=== PATIENT | female | born 1970 | race Caucasian/White ===

== ENCOUNTER 2021-03-02 14:17 | Emergency (ER) | payer BC, SELFPAY ==
--- NOTE | ~2021-03-02 | CT_ITS ---
EXAMINATION: CTA brain carotid DATE: 03/02/2021 20:14 INDICATION: Transient alteration of awareness TECHNIQUE: Computed tomographic angiography (CTA) of the head was performed with 100 mL Omnipaque-350 intravenous contrast. CTA of the neck was performed with intravenous contrast. The dose-length produ ct was 1020.60 mGy-cm. Maximum intensity projection and volume rendered 3D-reconstructions were creat ed by the technologist on a separate workstation. Automated exposure control and iterative reconstruc tion technique were employed. COMPARISON: None. FINDINGS: HEAD CTA: There is no intracranial hemorrhage, acute infarction, or abnormal mass lesion. The ventric les are normal. There is no abnormal mass effect or midline shift. The hammer-white matter differentiat ion is normal. The basal cisterns are patent. The orbits are normal. The paranasal sinuses, mastoids and calvarium are normal. There is no significant stenosis of the basilar artery or posterior cerebral arteries. There is no si gnificant stenosis of the intracranial internal carotid arteries or the anterior or middle cerebral a rteries. The anterior communicating artery and posterior communicating arteries are normal. There is no aneurysm. NECK CTA: The thyroid gland is unremarkable. The submandibular and parotid glands are symmetric. Ther e is no lymphadenopathy. There are no masses identified. The airway is unremarkable. There are no oss eous abnormalities. The superior mediastinum is unremarkable. There is 0% stenosis of the proximal right internal carotid artery relative to normal distal artery l umen diameter (NASCET criteria). There is 0% stenosis of the proximal left internal carotid artery re lative to normal distal artery lumen diameter. IMPRESSION: 1. No acute intracranial abnormality. Normal head CTA. 2. 0% stenosis of the proximal right internal carotid artery relative to normal distal artery lumen d iameter (NASCET criteria). 3. 0% stenosis of the proximal left internal carotid artery relative to normal distal artery lumen di ameter. Reviewed, dictated and finalized at location A. IMPRESSION: 1. No acute intracranial abnormality. Normal head CTA. 2. 0% stenosis of the proximal right internal carotid artery relative to normal distal artery lumen diameter (NASCET criteria). 3. 0% stenosis of the proximal left internal carotid artery relative to normal distal artery lumen diameter.
--- NOTE | ~2021-03-02 | CT_ITS ---
EXAMINATION: CT brain wo con INDICATION: Confusion, transient alteration of awareness COMPARISON: None TECHNIQUE: Standard unenhanced head CT. The dose-length product (DLP) was 529.67 mGy-cm. The mA was a djusted according to patient size. Iterative reconstruction technique was employed. FINDINGS: There is no intracranial hemorrhage, acute infarction, or abnormal mass lesion. The ventric les are normal. There is no abnormal mass effect or midline shift. The hammer-white matter differentiat ion is normal. The basal cisterns are patent. The orbits are normal. The paranasal sinuses, mastoids and calvarium are normal. IMPRESSION: 1. No acute intracranial abnormality. Reviewed, dictated and finalized at location A.
--- NOTE | 2021-03-02 14:18 | ECG_ITS ---
Measurements Intervals [place] Rate: 73 P: 50 OK: 122 QRS: 48 QRSD: 90 T: 32 QT: 366 QTc: 404 Interpretive Statements SINUS RHYTHM NORMAL ECG Electronically Signed On 03-02-2021 15:00:06 CDT by Yosi Burnett D.O.
[2021-03-02 14:42] VITALS: BP 167/112; PULSE 93; RESP 18; TEMP 37.1; O2SAT 98
[2021-03-02 14:59] LABS: Basophils Percent Auto 0.3 % (0.2-1.2); Eosinophils Absolute Auto 0.1 K/mm3 (0-0.3); Eosinophils Percent Auto 1.7 % (0-4.4); Hematocrit 42.3 % (37.0-47.0); Hemoglobin 13.9 g/dL (12.0-15.0); Immature Granulocyte Absolute 0.01 K/mm3 (0.00-0.031); Immature Granulocyte Percent A 0.2 % (0-0.5); Lymphocytes Absolute Auto 1.89 K/mm3 (0.9-3.2); Lymphocytes Percent Auto 31.7 % (18.3-44.2); Mean Corpuscular HGB Conc 32.9 g/dl (32-36); Mean Corpuscular Hemoglobin 29.3 pg (26-34); Mean Corpuscular Volume 89.2 fl (80-100); Mean Platelet Volume 10.1 fl (7.4-10.4); Monocytes Absolute Auto 0.4 K/mm3 (0.1-0.6); Monocytes Percent Auto 6.9 % (2.6-8.5); Neutrophils Absolute Auto 3.5 K/mm3 (1.3-6.7); Neutrophils Percent Auto 59.2 % (45.5-73.1); Platelet Count Result 217 k/mm3 (150-375); Red Blood Count 4.74 M/mm3 (4.2-5.4); Red Cell Distribution Width 14.5 % (11.5-14.5)
[2021-03-02 15:09] LABS: Alanine Aminotransferase 32 U/L (4-35); Albumin Level 4.4 g/dL (3.5-5.1); Alkaline Phosphatase 69 U/L (38-126); Anion Gap 7 mmol/L (8-16); Aspartate Amino Transferase 31 U/L (14-36); Bilirubin,Total 0.4 mg/dL (0.2-1.3); Blood Urea Nitrogen 11 mg/dL (7-17); Calcium 9.1 mg/dL (8.4-10.2); Carbon Dioxide 28 mmol/L (22-30); Chloride 105 mmol/L (98-107); Estimated CRCL calculation 76 ml/min; Estimated Glomerular Filt Rate > 60; Glucose 111 mg/dL (65-110); Potassium 4.1 mmol/L (3.4-5.0); Sodium 140 mmol/L (137-145)
[2021-03-02 15:13] LABS: Add Urine Microscopic? YES; Appearance Urine Clear (Clear); Bacteria Urine Trace /hpf; Bilirubin Urine Negative (Negative); Blood Urine Negative (Negative); Color Urine Yellow (Yellow); Glucose Urine UA Negative (Negative); Ketones Urine Trace mg/dL (Negative); Leukocyte Esterase Ur Negative LEU/UL (Negative); Mucus Urine Rare /lpf; Nitrate Urine Negative (Negative); Protein Urine Negative (Negative); Specific Grav Ur 1.025 (1.001-1.035); Squamous Epithelial Cell Urine Few /hpf (Few); WBC Urine 0-3 /hpf
[2021-03-02 19:12] VITALS: BP 157/99; PULSE 72; RESP 18; O2SAT 100
--- NOTE | 2021-03-02 19:14 | ED.AMS ---
HPI - Altered Mental Status General Chief Complaint: Altered Mental Status Stated Complaint: im really confused Time Seen by Provider: 03/02/21 19:13 Source: patient Mode of arrival: ambulatory Limitations: no limitations History of Present Illness HPI narrative: Patient is a 50-year-old female with a history of iron deficiency anemia who presents for evaluation of altered mental status which is now resolved. Patient states that while she was working from home earlier today she became acutely confused, felt as if she was hallucinating and had a brain problem. Patient denied acute headache, vision changes, nausea, vomiting, difficulty with speech, facial droop, extremity numbness or weakness. No chest pain or difficulty breathing. Patient states that she was aware that her brain was not working correctly and was able to text her who then prompted her to come to the emergency department for assessment. Patient states that she felt confused for approximately 1 hour before symptoms resolved while in our waiting room. At the time of my assessment, patient states she feels normal. She denies any acute complaint. She denies any pain. She denies any history of illness or fever. She denies neck pain. She denies any current numbness or weakness. Patient has no history of stroke. No history of travel. No history of drug use. No infectious type symptoms such as fever, chills, nausea, vomiting or abdominal pain. Patient denies history of seizure disorder. Of note, patient is not able to truly quantify her symptoms. When she states she felt confused, she states she is unable to really explain this to me. She states that she felt as if she was hallucinating, but denies the occurrence any auditory or visual hallucinations. She denies hearing voices currently. She denies seizure-like activity. Related Data Home Medications Medication Instructions Recorded Confirmed diphenhydramine 25 1 tablet PO .prn tablet 08/27/20 mg-acetaminophen 500 mg tablet famotidine 10 mg tablet 10 mg PO DAILY 08/27/20 Allergies Allergy/AdvReac Type Severity Reaction Status Date / Time No Known Allergies Allergy Verified 03/02/21 14:43 Review of Systems Review of Systems: Narrative: CONSTITUTIONAL: Denies fever, chills, or sweats. EYES: Denies visual changes ENT: Denies rhinorrhea, congestion, sore throat, or otalgia. CARDIOVASCULAR: Denies chest pain, palpitations, or edema. RESPIRATORY: Denies cough or dyspnea. GASTROINTESTINAL: Denies abdominal pain, nausea, vomiting, or diarrhea. GENITOURINARY: Denies dysuria or hematuria. SKIN: Denies rash or itching. MUSCULOSKELETAL: Denies back pain, joint pain, or myalgia. NEUROLOGIC: Denies headache, numbness, or weakness. PSYCHIATRIC: Denies anxiety or depression. Denies history of mental illness. [facility] Past Medical History Medical History History of gastroesophageal reflux (GERD) Surgical History Surgical History H/O bariatric surgery 2009 History of left knee surgery 2011 Family History Family History Mother Family history of malignant neoplasm of breast in first degree relative Other Hypertension Social History Social History Smoking status: Never smoker Alcohol intake: current Substance use: never Gender identity (if verbalized by the patient): Female Exam Narrative: Exam Narrative: GENERAL: Awake, alert, conversant HEAD: Normocephalic, atraumatic. EYES: 2+ PERRLA and EOMI. ENT: Nares clear, no rhinorrhea or epistaxis. Mucous membranes moist. NECK: Supple. CHEST: No respiratory distress, breathing even and non labored HEART: Regular rate, sinus rhythm ABDOMEN:Non distended, non tender EXTREMITIES: Normal range of motion. No edema. SKIN: Warm
[2021-03-02 21:04] VITALS: BP 138/91; PULSE 80; RESP 20; O2SAT 99
== END 2021-03-02 21:05 | disposition home or self-care (01) ==
PROVIDERS: Emergency Medicine; Emergency Provider Emergency Medicine; PCP Internal Medicine
DX: R40.4 Transient alteration of awareness (principal); K21.9 Gastro-esophageal reflux disease without esophagitis; Z98.84 Bariatric surgery status
CPT/HCPCS: 36415; 70450; 70496; 70498; 80053; 81001; 81025; 85025; 93005; 99284; Q9967

== ENCOUNTER 2021-03-23 15:26 | Outpatient (CLI) | payer BC, SELFPAY ==
--- NOTE | ~2021-03-23 | MR_ITS ---
EXAMINATION: MR brain/brain stem wo/w con DATE: 03/23/2021 16:50 INDICATION: Transient alteration of awareness. TECHNIQUE: Magnetic resonance imaging (MRI) of the brain and brainstem was performed without and with 15 mL MultiHance intravenous contrast. Sequences included sagittal and axial T1-weighted FSE, axial diffusion-weighted FS EPI, axial T2*-weighted GRE, axial T2-weighted FLAIR Propeller, and axial T2-we ighted Propeller. Postcontrast sequences included axial and coronal T1-weighted FSE. Apparent diffusi on coefficient (ADC) maps were created. COMPARISON: Head CT 03/02/2021 FINDINGS: There is no intracranial hemorrhage, acute infarction, or abnormal intracranial mass lesion . The ventricles are normal in size. The mastoid air cells are normal. There is mild mucosal thickeni ng in left maxillary sinus. The orbits are normal. IMPRESSION: 1. Normal brain. Reviewed, dictated and finalized at location B. IMPRESSION: 1. Normal brain.
== END 2021-03-23 15:27 | disposition home or self-care (01) ==
PROVIDERS: PCP Internal Medicine; Visit Provider Internal Medicine
DX: R40.4 Transient alteration of awareness (principal)
CPT/HCPCS: 70553; A9577

== ENCOUNTER → 2022-08-06 14:38 | Outpatient (CLI) | payer BC, SELFPAY ==
--- NOTE | ~2022-08-06 | DEXA_ITS ---
Bone Density Report Name: CAMERON ESQUIVEL Age: 52 Sex: Female Ethnicity: White Date of : 1970 Indication: postmenopausal; screening for osteoporosis; Referring Provider: GILBERT, SUSSY Study: Bone densitometry was performed. Exam Date: August 06, 2022 Accession number: [id number] Bone Density: Region BMD T-score Z-score Classification AP Spine (L1-L4) 1.053 0.1 0.9 Normal Femoral Neck (Left) 0.776 -0.7 0.1 Normal Total Hip (Left) 1.005 0.5 1.0 Normal Femoral Neck (Right) 0.769 -0.7 0.1 Normal Total Hip (Right) 1.004 0.5 1.0 Normal Total Hip Mean 1.005 0.5 1.0 Normal World Health Organization criteria for BMD impression classify patients as: Normal (T-score at or above -1.0), Osteopenia (T-score between -1.0 and -2.5), or Osteoporosis (T-score at or below -2.5). 10-year Fracture Risk: FRAX not reported because: All T-scores for Spine Total, Hip Total, Femoral Neck at or above -1.0 Clinical Information Provided by Patient: Patient maximum height was 65.0 Menopause Age: 50 No regular weight bearing exercise Drinks caffeinated beverages Onset of menses at age 12 Number of children 2 Impression: The patient has normal bone mass. Discussion: BONE DENSITY IS ABOVE THE MINIMUM DESIRABLE LEVEL AT ALL SKELETAL SITES TESTED. This patient?s bone mineral density is above the minimum desirable level (T-score -1.0 or better) at all sites measured. The patient should follow a healthful lifestyle (good nutrition with adequate calcium and vitamin D, and appropriate weight-bearing exercise). Follow-Up: Consider repeating this study in 5 years or sooner if there is some new clinical indication. Reported by: [facility] on 08/06/2022 3:41:00 PM. Reviewed, dictated and finalized at location A. [facility]
--- NOTE | ~2022-08-06 | MM_ITS ---
EXAMINATION: MM screening lawson BI w narendra HISTORY: Screening mammogram TECHNIQUE: Craniocaudal and mediolateral oblique 3-D tomosynthesis images were obtained and synthetic 2-D images were generated. CAD analysis was submitted and interpreted. COMPARISON: 02/26/2014 diagnostic left mammogram and left breast ultrasound 02/15/2014 bilateral screening mammogram BREAST PARENCHYMAL COMPOSITION: The breasts are heterogeneously dense, which may obscure small masses . FINDINGS: Bilateral mammographic asymmetries. Bilateral diagnostic mammography and breast ultrasound examinatio n are recommended. IMPRESSION: 1. Bilateral mammographic asymmetries 2. Bilateral diagnostic mammography and breast ultrasound examination are recommended BI-RADS Category 0: Incomplete: Needs additional imaging evaluation. Reviewed, dictated and finalized at location A. RY PUMP OPERATOR IMPRESSION: 1. Bilateral mammographic asymmetries 2. Bilateral diagnostic mammography and breast ultrasound examination are recom mended BI-RADS Category 0: Incomplete: Needs additional imaging evaluation.
== END ==
PROVIDERS: PCP Internal Medicine; Visit Provider Nurse Practitioner
DX: Z12.31 Encounter for screening mammogram for malignant neoplasm of breast (principal); Z78.0 Asymptomatic menopausal state; R92.8 Other abnormal and inconclusive findings on diagnostic imaging of breast
CPT/HCPCS: 77063; 77067; 77080

== ENCOUNTER → 2022-08-20 14:05 | Outpatient (CLI) | payer BC, SELFPAY ==
--- NOTE | ~2022-08-20 | MMUS_ITS ---
EXAMINATION: MM diagnostic lawson BI w narendra, US breast BI complete HISTORY: Follow-up breast asymmetries TECHNIQUE: Additional 3-D tomosynthesis images of the breasts were performed and synthetic 2-D images were generated. CAD analysis was submitted and interpreted. High resolution bilateral complete breas t ultrasound was performed. COMPARISON: Comparison to multiple prior studies sequentially, with oldest reviewed study dated 12/18. BREAST PARENCHYMAL COMPOSITION: The breasts are extremely dense, which lowers the sensitivity of mamm ography. FINDINGS: MAMMOGRAPHIC FINDINGS: There are no suspicious masses, calcifications or architectural distortion in either breast to sugges t malignancy. ULTRASOUND: Complete bilateral US of all 4 quadrants of the breasts and retroareolar region was reviewed. Normal heterogeneous echotexture without focal solid or cystic mass. IMPRESSION: 1. No evidence for malignancy in either breast. 2. Routine yearly screening mammogram and regular clinical breast examination are recommended. BI-RADS Category 1: Negative Reviewed, dictated and finalized at location A. CHECKER IMPRESSION: 1. No evidence for malignancy in either breast. 2. Routine yearly screening mammogram and regular clinical breast examination a re recommended. BI-RADS Category 1: Negative
== END ==
PROVIDERS: PCP Internal Medicine; Visit Provider Obstetrics & Gynecology Gynecology
DX: R92.8 Other abnormal and inconclusive findings on diagnostic imaging of breast (principal)
CPT/HCPCS: 76641; 77062; 77066; G0279

== ENCOUNTER 2023-09-24 09:33 | Outpatient (CLI) | payer BC, SELFPAY ==
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
--- NOTE | ~2023-09-24 | XR_ITS ---
EXAM: XR knee LT min 4V DATE: 09/24/2023 10:14 HISTORY: PAIN FOR 30 YRS SURGERY 10 YRS AGO HX OF SPORT INJURY . COMPARISON: 10/01/2011, images only. FINDINGS: Normal mineralization. No fracture or dislocation. No lytic or blastic lesion. Mild medial and lateral joint space narrowing. Mild tricompartmental osteophytosis. No significant joint effusio n. No erosion or periosteal change. Vascular calcifications. IMPRESSION: Mild tricompartmental left knee osteoarthritis. Reviewed, dictated and finalized at location K. RVENTIONAL TECHNOLOGIST
== END 2023-09-24 09:34 | disposition home or self-care (01) ==
PROVIDERS: PCP Internal Medicine; Visit Provider Nurse Practitioner
DX: M25.511 Pain in right shoulder (principal); M17.12 Unilateral primary osteoarthritis, left knee
CPT/HCPCS: 73030; 73564

== ENCOUNTER 2024-10-26 13:28 | Outpatient (CLI) | payer BC, SELFPAY ==
--- NOTE | ~2024-10-26 | MM_ITS ---
EXAMINATION: MM screening [place] BI w narendra HISTORY: Screening TECHNIQUE: Craniocaudal and mediolateral oblique 3-D tomosynthesis images were obtained and synthetic 2-D images were generated. CAD analysis was submitted and interpreted. COMPARISON: Comparison to multiple prior studies sequentially, with oldest reviewed study dated 07/10. BREAST PARENCHYMAL COMPOSITION: Dense: The breasts are heterogeneously dense, which may obscure small masses FINDINGS: There is no evidence of suspicious mass, calcification, or architectural distortion to sugg est malignancy in either breast. There has been no suspicious interval change. IMPRESSION: 1. No mammographic evidence of malignancy. 2. Recommend routine screening mammography in one year. BI-RADS Category 1: Negative Reviewed, dictated and finalized at location B.
== END 2024-10-26 13:29 | disposition home or self-care (01) ==
LOC: MICIMG 13:30
PROVIDERS: PCP Nurse Practitioner; Visit Provider Nurse Practitioner
DX: Z12.31 Encounter for screening mammogram for malignant neoplasm of breast (principal)
CPT/HCPCS: 77063; 77067

== ENCOUNTER 2025-06-11 08:29 | Outpatient (CLI) | payer BC, SELFPAY ==
--- NOTE | 2025-06-11 08:38 | ECG_ITS ---
Test Date: 2025-06-11 08:59:53 Measurements Intervals [place] Rate: 63 P: 51 [place]: 148 QRS: 44 QRSD: 98 T: 40 QT: 418 QTc: 428 Interpretive Statements SINUS RHYTHM LOW QRS VOLTAGE IN PRECORDIAL LEADS [QRS DEFLECTION < 1.0 mV IN CHEST LEADS] No previous ECG available for comparison Electronically Signed On 06-11-2025 21:21:02 END FINDER FORMING DEPARTMENT by Trent Norwood M.D.
--- OUTSIDE RECORDS SUMMARY | 2025-06-11 08:53 | XMS_ITS | Clinical Summary ---
Author Organization [facility] Address [address] [place] [address] Care Team Providers Care Gas Refrigerator Servicer Name Role Phone Jamal Grady DO Primary Care Provider [phone] Source Comments [facility],non-owned Affiliates and Associated Physician Practices is amultiple site organization consisting of ambulatory clinics and hospital sitesin [place], [place], [place] and [place]. This disclosure is being madepursuant to the Care Everywhere program and may not contain all information available regarding this patient. Last updated 18.[facility] Carreira Beauty Allergies Active Allergy Reactions Criticality Noted Date Comments Penicillins 10/13/2009 Tested pisitive in allergy tesing Medications * Be aware that medications may not be up to date on this document. Alwaysverify current medications with the patient. MULTIPLE VITAMINS PO Take by mouth daily. 04/09/2010 Active diphenhydrAMINE HCl 50 MG Take 1 tablet by mouth at bedtime Active ferrous sulfate 325 (65 FE) MG tablet Take 325 mg by mouth once daily Active famotidine (PEPCID) 20 MG tablet Take 20 mg by mouth once daily Active aspirin EC (ECOTRIN) 81 MG tablet Take 81 mg by mouth once daily Active Active Problems Problem Noted Date Diagnosed Date Transient alteration of awareness 05/01/2021 Morbid obesity 10/15/2009 Herniated cervical disc Hypertension Urinary, incontinence, stress female Knee pain Back pain Dyspnea on exertion Pilonidal cyst Family History Medical History Relation Name Comments Cancer Mother Hypertension Mother CAD (Coronary Artery Disease) Other Cancer Other Hypertension Other Stroke Other Relation Name Status Comments Mother Other Social History Tobacco Use Types Packs/Day Years Used Date Smoking Tobacco: Never Smokeless Tobacco: Never Alcohol Use Standard Drinks/Week Comments Yes 0 (1 standard drink = 0.6 oz pur e alcohol) occasional use Comments No Sex and Gender Information Value Date Recorded Sex Assigned at Not on file Legal Sex Female 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 Gender Identity Not on file Sexual Orientation Not on file Last Filed Vital Signs Vital Sign Reading Time Taken Comments Blood Pressure 155/102 05/01/2021 10:52 AM CDT Pulse 82 05/01/2021 10:52 AM CDT Temperature 36.5 C (97.7 F) 05/01/2021 10:52 AM CDT Respiratory Rate 18 04/16/2010 10:37 AM CDT Oxygen Saturation 99% 05/01/2021 10:52 AM CDT Inhaled Oxygen Concentration - - Weight 85.8 kg (189 lb 3.2 oz) 05/01/2021 10:52 AM CDT Height 165.1 cm (5' 5) 05/01/2021 10:52 AM CDT Body Mass Index 31.48 05/01/2021 10:52 AM CDT Plan of Treatment Health Maintenance Due Date Last Done Comments COLOGUARD (AGES 45-75) - COLON CA SCREENING 1971 COLON MONITORING 1971 COLONOSCOPY - COLON CA SCREENING 1971 CT COLONOGRAPHY - COLON CA SCREENING 1971 Colorectal Cancer Screening 1971 FIT - COLON CA SCREENING 1971 FLEX SIG - COLON CA SCREENING 1971 MAMMOGRAM 1971 HIV SCREENING 1986 HEPATITIS C SCREENING 07/13/1989 DTAP/TDAP/TD VACCINES (1 - Tdap) 1990 HEPATITIS B VACCINE (1 of 3 - 19+ 3-dose series) 1990 LIPID TESTING 03/11/2015 03/11/2010 SCREENING FOR DIABETES 05/01/2021 0, 04/11/2010, 04/11/2010, Additional history exists PNEUMOCOCCAL VACCINE 50+ (1 of 1 - PCV) 2021 ZOSTER VACCINE (1 of 2) 2021 DEPRESSION SCREENING 08/08/2024 COVID-19 VACCINE (1 - 2024-25 season) 2025 INFLUENZA VACCINE (#1) 2025 HIB VACCINE Aged Out No longer eligi ble based on patient's age to complete this topic HPV VACCINE Aged Out No longer eligi ble based on patient's age to complete this topic MENINGOCOCCAL (Group B) VACCINE SHARED DECISION-MAKING Aged Out No longer eligible based on patient's age to complete this topic MENINGOCOCCAL GROUPS A/C/Y/W VACCINE Aged Out No longer eligible based on patient's age to complete this topic Procedures Procedure Name Priority Date/Time Associated Diagnosis Comments GLUCOSE - POINT OF CARE Routine 04/12/2010 5:37 AM CDT LIPID PROFILE Routine 03/11/2010 4:25 PM CDT Morbid Obesity Herniated Cervical Disc Hypertension Urinary, Incontinence, Stress Female Knee Pain Back Pain Dyspnea on Exertion from Last 3 Months or Most Recently Relevant to Health Maintenance Results * (ABNORMAL) GLUCOSE - POINT OF CARE (04/12/2010 5:37 AM CDT) Glucose WB/POC 116(H) 75 - 110 mg/dl [facility] BLOOD SPECIMEN / Unknown 04/12/2010 5:37 AM CDT 04/12/2010 9:00 AM CDT Lalit Tomlinson MD LAB - POINT OF CARE ORDER BINDU Final Result [facility] [address] [place] [address] * (ABNORMAL) LIPID PROFILE (03/11/2010 4:25 PM CDT) Cholesterol 200 120.0 - 200.0 mg/dl [facility] Triglycerides 174 0.0 - 250.0 mg/dl [facility] HDL Cholesterol 35(L) >40 mg/dl [facility] LDL Calculated 130.2 mg/dl [facility] Chol HDL Ratio 5.7 [facility] Comment Lipid [facility] Comment: Risk Classification HDL CHOL LDL CHOL TOTAL CHOL According to NCEP (mg/dl) (mg/dL) (mg/dl) Desirable >40 <130 < 200 Borderline/High - 130-159 200-239 High - >159 > 239 The total cholesterol to HDL cholesterol ratio may be used to predict risk for coronary heart disease in untreated patients according to data reported from the [place] Study by Aamir Cheema M.D. The predictive value in patients over 60 years of age is uncertain. Risk TOTAL CHOL/HDL RATIO MEN WOMEN 1/2 Average 3.43 3.27 Average 4.97 4.44 2X Average 9.55 7.05 3X Average 23.39 11.04 In Coronary Artery Disease patients, in whom nonpharmacological therapy has failed, the AHA recommends that drug therapy should be prescribed to lower LDL cholesterol to <100mg/dL. Drug therapy may be instituted in patients with HDL <35mg/dL. The reported LDL is a calculated result. For a more precise measurement, a direct LDL test is available, as necessary. BLOOD SPECIMEN / Unknown 03/11/2010 4:25 PM CDT 03/11/2010 5:07 PM CDT Lalit Tomlinson MD LAB - CHEMISTRY ORDERABLE S Final Result [facility] [address] [place] [address] from Last 3 Months or Most Recently Relevant to Health Maintenance Insurance [facility] Advance Directives * Full Code (Latest Code Status on File) Date Activated Date Inactivated Comments 04/09/2010 9:39 AM 04/13/2010 2:57 AM Care Teams Gas Refrigerator Servicer Relationship Specialty Start Date End Date Jamal Grady DO PCP - General 06/11/21
--- OUTSIDE RECORDS SUMMARY | 2025-06-11 08:53 | XMS_ITS | Clinical Summary ---
Author Organization [facility] Care Team Providers Care Regional Ehs Manager Name Role Phone Unavailable Primary Care Provider Unavailabl e Social History Tobacco Use Types Packs/Day Years Used Date Smoking Tobacco: Never Assessed Comments Unknown Sex and Gender Information Value Date Recorded Sex Assigned at Not on file Legal Sex Female 8:06 AM EQUIPMENT OPERATOR/LABORER/SUPERVISOR Gender Identity Not on file Sexual Orientation Not on file Plan of Treatment Health Maintenance Due Date Last Done Comments Hepatitis C Virus (HCV) Screening 1970 TdaP Immunization 1971 Hepatitis B Immunization (1 of 3 - 19+ 3-dose series) 1990 Pap Smear 1992 Cervical Cancer Screening (CCS) 2001 HPV/Cotest 2001 Cologuard 2016 Colonoscopy 2016 Colorectal Cancer Screening 2016 Immunochemical Fecal Occult Blood 2016 Pneumococcal Immunization (5 0+ years) (1 of 1 - PCV) 2021 Zoster Immunization (1 of 2) 2021 Influenza Immunization (#1) 2025 SARS-COV-2 Immunization ( season) 2025 Respiratory Syncytial Virus (RSV) Immunization (Adult) (1 - 1-dose 75+ series) 2046 Human Papillomavirus (HPV) Immunization Aged Out No longer eligible b ased on patient's age to complete this topic Meningococcal Immunization (ACWY) Aged Out No longer eligible based on patient's age to complete this topic Rotavirus Immunization Aged Out No lo nger eligible based on patient's age to complete this topic
== END 2025-06-11 08:30 | disposition home or self-care (01) ==
LOC: ANHLAB 08:32
PROVIDERS: PCP Internal Medicine; Visit Provider Nurse Practitioner
DX: Z01.818 Encounter for other preprocedural examination (principal)
CPT/HCPCS: 93005

== ENCOUNTER 2025-06-20 00:55 | Day surgery (SDC) | payer BC, SELFPAY ==
[2025-06-12 10:22] VITALS: BMI 35.8
--- NOTE | 2025-06-12 10:33 | PC.NURSE ---
[facility] has started construction of its new state of the art ER which will open Spring 2026. With this, we anticipate parking may be a challenge for some our surgical patients and families. Parking spaces are limited but are available for all Surgical, obstetrics, and ER patients sharing this lot. If you arrive and find you are having a hard time finding a parking space, please note that we understand the challenges, please drive around the hospital and park near Hospital Entrance 1. When you enter this entrance, you can ask a volunteer to direct or take you back to the surgical waiting area to check in. We appreciate everyone?s understanding of these expected challenges while we build for your future. Report to the Outpatient Waiting Room, entrance under the green pavilion located off [address], at time _1100_ on date _[phone]_. Planned Procedure Time: _1pm_.? Time changes happen often and if your time is changed the preop area will call you the afternoon before. - You and your visitor will be asked to self-screen and do not enter if you have any COVID symptoms. Please call surgeon if you need to reschedule. - A mask is optional within the hospital at this time. Patients may have clear liquids (water, carbonated beverages, clear teas, apple juice) until 3 hours prior to surgery with a maximum of 20 ounces. - No food from midnight until time of surgery and no smoking, or chewing tobacco (or any form of nicotine). No chewing gum, candy or mints. Take only the following medications with a SIP of water on the morning of surgery: __None___ DO NOT STOP ANY OF YOUR OTHER PRESCRIPTION MEDICATIONS PRIOR TO SURGERY EXCEPT THE FOLLOWING Hold all vitamins and supplements for 3 days per anesthesiologist. Medications to discontinue per physician Date to take last dose Please no make-up, nail central african, hairspray, perfume, deodorant, or body powder the day of surgery.? No jewelry (including any body piercings) or valuables the day of surgery, leave them at home.? Please take a shower or bath the night before, or the morning of, surgery with an antibacterial soap.? Wear comfortable, loose fitting clothing.? - Jewelry must be removed prior to entering the operating room.? Rings and piercings that are not removed may be cut off. - The hospital will not accept responsibility for valuables.? - Please leave all valuables, including medications, at home the day of surgery. If you are going home after surgery, a licensed airport driver must drive you home.? - NO public transportation without another adult if you receive anesthesia. - We recommend that an adult stay with you for 24 hours following discharge. - We also recommend that you do not drive, make important decision, drink alcoholic beverages, or take any drugs that were not prescribed by your health care provider for at least 24 hours after your discharge time. Follow any additional instructions given to you from your surgeon. Telephone instructions given to __Karene___and asked if any additional questions and then verbalized understanding. Patient advised to call surgeon office or pre surgery nurse liaison [phone] if any additional questions.
[2025-06-20 11:03] VITALS: BMI 35.4
[2025-06-20 11:05] VITALS: BP 128/81; PULSE 77; RESP 18; TEMP 36.1; O2SAT 98
[2025-06-20] MEDS: LACTATED RINGERS 1,000 ML 30 ML IV CONT (11:45)
--- NOTE | 2025-06-20 13:02 | PM.IMHP ---
H&P: HPI History of Present Illness Date/Time: 06/20/25 13:02 Chief Complaint: painful soft tissue mass left foot Review of Systems Review of Systems: All systems reviewed & are unremarkable except as noted in HPI and below PMFSH Past Medical History Medical History TIA (transient ischemic attack) Ledderhose's disease Elevated blood pressure reading History of gastroesophageal reflux (GERD) Surgical History Surgical History History of left knee surgery 2011 H/O bariatric surgery 2009 Family History Family History Mother Family history of malignant neoplasm of breast in first degree relative Hypertension Alzheimer disease Social History Social History Smoking status: Never smoker Alcohol intake: current Substance use: never Lack of Transportation: No Lack of Food: Never True Current Housing: I Have Housing Concerned About Future Housing: No Difficulty Paying Gas/Electric Bills: No Difficulty Paying for Meds: No Currently Unemployed: No Education: Master's Degree or Higher Difficulty w/ Childcare or Family Care: No Living arrangements: with family Gender identity (if verbalized by the patient): Female Spiritual care concerns: No Meds Home Medications and Allergies Home Medications ?Medication ?Instructions ?Recorded ?Confirmed ?Type famotidine 10 mg tablet (Pepcid AC) 10 mg PO DAILY 08/27/20 06/20/25 History doxylamine succinate 25 mg tablet 25 mg PO QHS PRN insomnia 09/21/23 06/12/25 History (Nighttime Sleep-Aid (doxylamine)) losartan 25 mg tablet 25 mg PO DAILY #90 tabs 05/09/25 06/20/25 Rx Allergies Allergy/AdvReac Type Severity Reaction Status Date / Time No Known Allergies Allergy Verified 06/20/25 11:49 Vital Signs Vital Signs - 24 hr 06/20/25 11:05 Temperature 36.1 C L Pulse Rate 77 Respiratory Rate 18 Blood Pressure 128/81 Pulse Oximetry 98 Oxygen Delivery Room Air Assessment and Plan Assessment and plan Plan excision soft tissue mass left foot
--- NOTE | 2025-06-20 13:05 | PM.IMHP ---
H&P: HPI History of Present Illness Date/Time: 06/20/25 13:05 Chief Complaint: painful soft tissue mass left foot PMFSH Past Medical History Medical History TIA (transient ischemic attack) Ledderhose's disease Elevated blood pressure reading History of gastroesophageal reflux (GERD) Surgical History Surgical History History of left knee surgery 2011 H/O bariatric surgery 2009 Family History Family History Mother Family history of malignant neoplasm of breast in first degree relative Hypertension Alzheimer disease Social History Social History Smoking status: Never smoker Alcohol intake: current Substance use: never Lack of Transportation: No Lack of Food: Never True Current Housing: I Have Housing Concerned About Future Housing: No Difficulty Paying Gas/Electric Bills: No Difficulty Paying for Meds: No Currently Unemployed: No Education: Master's Degree or Higher Difficulty w/ Childcare or Family Care: No Living arrangements: with family Gender identity (if verbalized by the patient): Female Spiritual care concerns: No Meds Home Medications and Allergies Home Medications ?Medication ?Instructions ?Recorded ?Confirmed ?Type famotidine 10 mg tablet (Pepcid AC) 10 mg PO DAILY 08/27/20 06/20/25 History doxylamine succinate 25 mg tablet 25 mg PO QHS PRN insomnia 09/21/23 06/12/25 History (Nighttime Sleep-Aid (doxylamine)) losartan 25 mg tablet 25 mg PO DAILY #90 tabs 05/09/25 06/20/25 Rx Allergies Allergy/AdvReac Type Severity Reaction Status Date / Time No Known Allergies Allergy Verified 06/20/25 11:49 Vital Signs Vital Signs - 24 hr 06/20/25 11:05 Temperature 36.1 C L Pulse Rate 77 Respiratory Rate 18 Blood Pressure 128/81 Pulse Oximetry 98 Oxygen Delivery Room Air
--- NOTE | 2025-06-20 13:06 | WPDHPUPDATE1 ---
History and Physical Update Update Date/Time: 06/20/25 13:06 History and Physical has been reviewed, including an updated exam of the patient. There are NO changes in the patient's condition. Risks, benefits, and alternatives have been discussed and questions answered. Patient agrees to proceed with procedure.
[2025-06-20] MEDS: LIDOCAINE 2% LOCAL INJ 20 ML VIAL 10 ML INFILTRATE (13:11)
[2025-06-20] MEDS: BUPivacaine HCL 0.5% 10 ML AMP INFILTRATE (13:11)
--- NOTE | 2025-06-20 13:28 | S_PTH ---
PATIENT: Sofia Dietrich LOC: [facility] U#:[id number] AGE/SX: 54/F ROOM: RE06/20/[address]: Juice Chan DPM : 1970 BED: DIS: 06/20/2025 SPEC #: [id number] RECD: 06/20/25 14:26 STATUS: MADDISON REBronson #: [id number] [place]: 06/20/25 13:[address]: Juice Chan DEPT: [facility] Surgical RECD BY: Stella Gibbs ENTERED: 06/20/25 14:27 SP TYPE: Surgical OTHR DR: Jamal Grady DO Tissues: A - Mass Procedures: Hematoxylin and Eosin Stain Gross and Microscopic Level 3
[2025-06-20] MEDS: ceFAZolin 1 GM in SODIUM CHLORIDE 0.9% IV 50 ML 100 ML IVPB (13:30)
[2025-06-20 13:46] VITALS: BP 119/67; PULSE 70; RESP 18; O2SAT 99
--- NOTE | 2025-06-20 13:49 | W.PM.PROC2 ---
Procedure Note - Detailed Date of Procedure 06/20/25 Pre-op Diagnosis benign neoplasm soft tissue left lower limb Post-op Diagnosis Same Procedure Performed excision soft tissue mass left foot Surgeon Juice Chan DPM Anesthesia MAC Indications pain Findings soft tissue mass Description of Procedure excision soft tissue mass left foot Estimated Blood Loss 0.1 Tourniquet Time Total Tourniquet Time: 20 min Drains No Packing No Pathology Yes Complications None Condition Stable Disposition Same day [facility] Billing Surgery - Charge Forward: Surgery Billing
[2025-06-20] MEDS: oxyCODONE HCL (*CRX) 5 MG TAB IR PO (14:00)
[2025-06-20 14:16] VITALS: BP 141/88; PULSE 59
[2025-06-20 14:46] VITALS: BP 130/72; PULSE 70
== END 2025-06-20 14:51 | disposition home or self-care (01) ==
PROVIDERS: PCP Internal Medicine; Visit Provider Podiatrist Foot & Ankle Surgery
PROC: (CPT 28039; principal; 2025-06-20 13:00)
DX: M72.2 Plantar fascial fibromatosis (principal); R03.0 Elevated blood-pressure reading, without diagnosis of hypertension; K21.9 Gastro-esophageal reflux disease without esophagitis; Z98.890 Other specified postprocedural states; Z98.84 Bariatric surgery status; Z86.73 Personal history of transient ischemic attack (TIA), and cerebral infarction without residual deficits; Z80.3 Family history of malignant neoplasm of breast
CPT/HCPCS: 28039; 88304; A9270; J0690; J1100; J2003; J2250; J2405; J2704; J3010; J7120